=== PATIENT | female | born 2000 ===

== ENCOUNTER 2022-05-05 09:42 | Day surgery (SDC) | payer BC ==
[~2022-05-05 09:42] MED LIST: EPINEPHrine 1 MG/ML 30 ML MDV IRR SCH; Lactated Ringers 1,000 ML IV SCH; Lidocaine 1%/Sod Bicarbonate in NS 8.4% 1 ML Syringe IDERM PRN; Sodium Chloride 0.9% 10 ML Syringe FLUSH PRN; Sodium Chloride 0.9% 10 ML Syringe FLUSH SCH
[2022-05-05] MEDS ORDERED: fentaNYL 250 MCG/5 ML SDV ONE (09:46)
[2022-05-05] MEDS ORDERED: Propofol 200 MG/20 ML SDV ONE ×3 (09:46→11:43)
[2022-05-05] MEDS ORDERED: Midazolam 1 MG/ML 2 ML SDV ONE ×2 (09:46→09:57)
[2022-05-05] MEDS ORDERED: Lidocaine 1% 4 ML ONE ×2 (09:47→09:56)
[2022-05-05] MEDS ORDERED: Rocuronium 50 MG/5 ML Vial ONE (09:48)
[2022-05-05] MEDS ORDERED: Dexamethasone 4 MG/ML 5 ML MDV ONE (09:49)
[2022-05-05] MEDS ORDERED: Ondansetron 4 MG/2 ML SDV ONE ×2 (09:49→09:56)
[2022-05-05] MEDS ORDERED: fentaNYL 100 MCG/2 ML SDV ONE (09:57)
[2022-05-05] MEDS ORDERED: Bupivacaine 0.25% 10 ML SDV ONE (10:05)
[2022-05-05] MEDS ORDERED: Ondansetron 4 MG/2 ML SDV IVPUSH PRN (10:10)
[2022-05-05 10:39] LABS: ESTIMATED GFR 108 mL/min (>60)
[2022-05-05] MEDS: fentaNYL 100 MCG/2 ML SDV IVPUSH PRN ×3 (11:39→12:05)
[2022-05-05] MEDS ORDERED: Acetaminophen/HYDROcodone 325-5 MG Tab PO SCH (11:52)
[2022-05-05] MEDS ORDERED: ceFAZolin 2 GM Vial ONE (12:29)
[2022-05-05] MEDS ORDERED: Ketorolac 30 MG/ML SDV IVPUSH ONE (12:30)
[2022-05-05] MEDS ORDERED: Ketorolac 30 MG/ML SDV ONE (12:31)
[2022-05-05] MEDS ORDERED: Neostigmine Methylsulfate 10 MG/10 ML MDV ONE (12:50)
[2022-05-05] MEDS ORDERED: Lactated Ringers 1,000 ML ONE (12:59)
== END 2022-05-05 13:13 | disposition home or self-care (01) ==
LOC: JD.SDS 09:42
PROVIDERS: ATTEND Orthopaedic Surgery
DX: M67.51 Plica syndrome, right knee (principal); F41.9 Anxiety disorder, unspecified; K21.9 Gastro-esophageal reflux disease without esophagitis; Z79.899 Other long term (current) drug therapy; Z98.890 Other specified postprocedural states; Z87.19 Personal history of other diseases of the digestive system
CPT/HCPCS: 29875; 36415; 80048; 81025; A9270; J0171; J1885; J2250; J2405; J2704; J3010; J3490; J7120; 01402; J0690; J1100; J2710